=== PATIENT | male | born 1990 | race Hispanic/Latino ===

== ENCOUNTER 2018-09-21 20:05 | Emergency (ER) | payer OTHER ==
[2018-09-21 20:22] VITALS: TEMP 98.4; O2SAT 100
[2018-09-21] MEDS ORDERED: Morphine 4 MG/ML VIAL IVP ONE (21:15)
[2018-09-21] MEDS ORDERED: Lidocaine 1% PF (5ml) Amp INJ ONE (21:18)
[2018-09-21] MEDS ORDERED: Lidocaine 1% Inj (20ml) ONE (21:25)
[2018-09-21] MEDS ORDERED: Morphine 4 MG/ML VIAL ONE (21:25)
[2018-09-21] MEDS ORDERED: Lidocaine 1% Inj (20ml) IJ ONE (21:30)
[2018-09-21 21:44] LABS: BASO # 0.1 K/uL (0.0-0.2); BASO % 0.5 % (0.0-2.0); EOS # 0.1 K/uL (0.0-0.7); EOS % 0.6 % (0.0-4.0); HEMOGLOBIN 15.2 g/dL (12.0-18.0); LYMPH # 1.8 K/uL (1.0-4.3); LYMPH % 12.5 % (20.0-40.0); MEAN CELL VOLUME 85.9 fl (80.0-94.0); MEAN CORPUSCULAR HGB CONC 33.7 g/dL (33.0-37.0); MEAN PLATELET VOLUME 8.8 fl (7.2-11.7); MONO # 1.4 K/uL (0.0-0.8); MONO % 9.8 % (0.0-10.0); NEUT # 11.1 K/uL (1.8-7.0); NEUT % 76.6 % (50.0-75.0); NRBC % 0.1 % (0.0-0.0); RBC 5.23 Mil/uL (4.40-5.90); RED CELL DISTRIBUTION WIDTH 12.8 % (11.5-14.5); WHITE BLOOD COUNT 14.5 K/uL (4.8-10.8)
[2018-09-21 21:53] LABS: ALB/GLOB RATIO 1.4 (1.0-2.1); ALBUMIN 4.9 g/dL (3.5-5.0); ALT/SGPT 36 U/L (21-72); AST/SGOT 32 U/L (17-59); BLOOD UREA NITROGEN 14 mg/dl (9-20); CALCIUM 9.7 mg/dL (8.4-10.2); GFR NON-AFRICAN AMERICAN > 60
--- NOTE | 2018-09-21 21:58 | ED PDOC ---
HPI: Abdomen Time Seen by Provider: 09/21/18 20:34 Chief Complaint (Nursing): Abdominal Pain Chief Complaint (Provider): Rectal Abscess History Per: Patient History/Exam Limitations: no limitations Onset/Duration Of Symptoms: Days (x3) Additional Complaint(s): 28 y/o male presents to the ED complaining of x3 days of painful swelling to his anal-rectal region. Denies fever or chills. Patient saw Urgent Care today and was referred to ED for anal rectal abscess. Past Medical History Reviewed: Historical Data, Nursing Documentation, Vital Signs Vital Signs: Last Vital Signs Temp 98.4 F 09/21/18 20:16 Pulse 83 09/21/18 20:16 Resp 18 09/21/18 20:16 BP 149/80 09/21/18 20:16 Pulse Ox 100 09/21/18 20:16 - Medical History PMH: No Chronic Diseases - Surgical History Surgical History: No Surg Hx - Family History Family History: States: Unknown Family Hx - Home Medications Home Medications: Ambulatory Orders Medication Instructions Recorded Sulfamethoxazole/Trimethoprim 1 tab PO BID 7 Days #14 tab 09/21/18 [Bactrim DS 800 mg-160 mg] oxyCODONE/Acetaminophen [Percocet 1 tab PO Q6 PRN #10 tab 09/21/18 5/325 mg Tab] - Allergies Allergies/Adverse Reactions: Allergies Allergy/AdvReac Type Severity Reaction Status Date / Time No Known Allergies Allergy Verified 09/21/18 20:16 Review of Systems ROS Statement: Except As Marked, All Systems Reviewed And Found Negative Constitutional: Negative for: Fever, Chills Gastrointestinal: Positive for: Rectal Pain Physical Exam - Reviewed Nursing Documentation Reviewed: Yes Vital Signs Reviewed: Yes - Physical Exam Appears: Positive for: Non-toxic Head Exam: Positive for: ATRAUMATIC, NORMOCEPHALIC Skin: Positive for: Normal Color, Warm, DRY Eye Exam: Positive for: Normal appearance Cardiovascular/Chest: Positive for: Regular Rate, Rhythm Respiratory: Positive for: Normal Breath Sounds Gastrointestinal/Abdominal: Positive for: Soft. Negative for: Tenderness Rectal: Positive for: Mass (tender fluctuant mass at 5 o'clock position of anal- rectal juncture), Tenderness Extremity: Positive for: Normal ROM. Negative for: Pedal Edema, Deformity Neurologic/Psych: Positive for: Alert, Oriented. Negative for: Motor/Sensory Deficits - Laboratory Results Result Diagrams: 09/21/18 21:35 09/21/18 21:35 - ECG O2 Sat by Pulse Oximetry: 100 (rA) Pulse Ox Interpretation: Normal Medical Decision Making Medical Decision Making: Time: 21:35 Initial Impression: rectal abscess Initial Plan: IV access established. IV morphine given. Discussed patient case with residential child care counselor who came to evaluate patient at bedside. I&D performed by residential child care counselor without complication. IV Vanc and IV Zosyn. Following procedure pt. had near syncopal episode and felt nauseous. IV NS bolus given and IV Zofran. On reassessment, pt. feeling better. Wound care inst. reviewed by surg. resident with pt. ------ Scribe Attestation: Documented by Benjy Brice, acting as a scribe for Rima Warner PA-C Provider Scribe Attestation: All medical record entries made by the Scribe were at my direction and personally dictated by me. I have reviewed the chart and agree that the record accurately reflects my personal performance of the history, physical exam, medical decision making, and the department course for this patient. I have also personally directed, reviewed, and agree with the discharge instructions and disposition. Disposition - Clinical Impression Clinical Impression: Rectal abscess - Disposition Referrals: Nigel Issa MD [Staff Provider] - Disposition: Routine/Home Disposition Time: 22:52 Condition: IMPROVED Additional Instructions: sitz bath three time a day with warm water Take antibiotic w food Follow up at Dr. Issa's office in 1-2 weeks. Prescriptions: oxyCODONE/Acetaminophen [Percocet 5/325 mg Tab] 1 tab PO Q6 PRN #10 tab PRN Reason: Pain, Moderate (4-7) Sulfamethoxazole/Trimethoprim [Bactrim DS 800 mg-160 mg] 1 tab PO BID 7 Days #14 tab Instructions: Anal Abscess and Fistula (DC) Forms: [facility] (Yoruba), [facility] ED School/Work Excuse
[2018-09-21] MEDS ORDERED: Piperacillin/Tazobact 4.5 GM in Sodium Chloride 0.9% 100 ML IVPB STA (22:10)
[2018-09-21] MEDS ORDERED: Piperacillin/Tazobact 3.375 gm Inj IVPB ONE (22:16)
[2018-09-21] MEDS ORDERED: Vancomycin 1 g Inj ONE (22:17)
[2018-09-21] MEDS ORDERED: Piperacillin/Tazobact 3.375 GM in Sodium Chloride 0.9% 100 ML IVPB STA (22:20)
--- NOTE | 2018-09-21 22:30 | PCM.PROC ---
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
[2018-09-21] MEDS: Sodium Chloride 0.9% 1,000 ML IV SCH ×2 (22:35→23:50)
--- NOTE | 2018-09-22 00:13 | ED PDOC ---
- Laboratory Results Result Diagrams: 09/21/18 21:35 09/21/18 21:35 - ECG O2 Sat by Pulse Oximetry: 100 Medical Decision Making Medical Decision Making: Pt endorsed to me by ISABELLA Warner at 00:00 pending completion of antibiotics. Reglan 10mg IV ordered for recurrent N/V after Zofran 8mg total given. Disposition Counseled Patient/Family Regarding: Studies Performed, Diagnosis, Need For Followup - Clinical Impression Clinical Impression: Rectal abscess - POA Present On Arrival: None - Disposition Referrals: Nigel Issa MD [Staff Provider] - Disposition: Routine/Home Disposition Time: 02:25 Condition: IMPROVED Additional Instructions: sitz bath three time a day with warm water Take antibiotic w food Follow up at Dr. Issa's office in 1-2 weeks. Prescriptions: Ondansetron ODT [Zofran ODT] 4 mg PO TID PRN 3 Days odt PRN Reason: Nausea/Vomiting oxyCODONE/Acetaminophen [Percocet 5/325 mg Tab] 1 tab PO Q6 PRN #10 tab PRN Reason: Pain, Moderate (4-7) Sulfamethoxazole/Trimethoprim [Bactrim DS 800 mg-160 mg] 1 tab PO BID 7 Days #14 tab Instructions: Anal Abscess and Fistula (DC) Forms: [employer] (Grenadian), [facility] ED School/Work Excuse Print Language: BELGIAN
[2018-09-22] MEDS: Sodium Chloride 0.9% 1,000 ML IV SCH ×3 (00:17→01:33)
[2018-09-22 02:25] VITALS: BP 110/75; PULSE 88; RESP 22
[2018-09-22] MEDS ORDERED: Piperacillin/Tazobact 3.375 GM in Sodium Chloride 0.9% 100 ML IVPB SCH (04:00)
== END 2018-09-22 02:25 | disposition home or self-care (01) ==
LOC: H.ER 20:05
DX: K61.1 Rectal abscess (principal); R42 Dizziness and giddiness
CPT/HCPCS: 46040; 80053; 85025; 87070; 87181; 96365; 96366; 96367; 96375; 96376; 99285; J2270; J2405; J2543; J7030